=== PATIENT | female | born 2000 | race Caucasian/White ===

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

== ENCOUNTER → 2021-08-22 | Outpatient (CLI) | payer OTHER ==
[~2021-08-22] MED LIST changes: +IBUPROFEN600 MG PO; +PYRIDIUM200 M1 PO; +SEPTDS PO
== END | disposition home or self-care (01) ==
LOC: COVID19 16:19
PROVIDERS: ATTEND Internal Medicine
DX: Z20.822 Contact with and (suspected) exposure to COVID-19 (principal)

== ENCOUNTER 2021-11-19 08:11 | Emergency (ER) | payer OTHER ==
[~2021-11-19] VITALS: Ht 165.1 cm; Wt 90.7 kg
[2021-11-19] MEDS ORDERED: Motrin,Rufen800 MG PO (11:06)
== END 2021-11-19 11:07 | disposition home or self-care (01) ==
LOC: ED 08:11
DX: M77.9 Enthesopathy, unspecified (principal)

== ENCOUNTER 2023-02-13 16:10 | Emergency (ER) | payer OTHER ==
[~2023-02-13] VITALS: Ht 165.1 cm; Wt 79.8 kg
[2023-02-13] MEDS ORDERED: AVPAK AZITHROM250 M1 PO (18:12)
== END 2023-02-13 18:13 | disposition home or self-care (01) ==
LOC: ED 16:10
DX: J40 Bronchitis, not specified as acute or chronic (principal); Z79.2 Long term (current) use of antibiotics; Z79.899 Other long term (current) drug therapy

== ENCOUNTER 2023-06-20 06:51 | Emergency (ER) | payer OTHER ==
[~2023-06-20] VITALS: Ht 172.7 cm; Wt 80.7 kg
[~2023-06-20 06:51] MED LIST changes: +AVPAK AZITHROM250 M1 PO
[2023-06-20] MEDS ORDERED: TRI-LO-MILI TA1 EACH PO (06:59)
[2023-06-20 08:16] LABS: BASO # 0.1 10*3/uL (0.0-0.1); BASO % 0.6 % (0.0-1.0); EOS # 0.3 10*3/uL (0.0-0.4); HEMATOCRIT 39.8 % (37.0-47.0); LYMPH # 1.4 10*3/uL (1.3-4.4); LYMPH % 16.8 % (27.0-41.0); MEAN CELL VOLUME 94.3 fl (81.0-99.0); MEAN CORPUSCULAR HGB CONC 33.9 g/dl (33.0-37.0); MEAN PLATELET VOLUME 9.8 fl (9.6-12.3); MONO # 0.4 10*3/uL (0.1-1.0); MONO % 5.3 % (3.0-9.0); NEUT # 6.1 10*3/uL (2.3-7.9); NEUT % 73.1 % (47.0-73.0); PLATELET COUNT AUTOMATED 274 10*3/uL (130-400); RED BLOOD COUNT 4.22 10*6/uL (4.10-5.10); RED CELL DISTRI WIDTH 11.7 % (0-14.5); WHITE BLOOD COUNT 8.3 10*3/uL (4.8-10.8)
[2023-06-20 08:36] LABS: ALKALINE PHOSPHATASE 51 U/L (46-116); BUN 8 mg/dl (9-23); CHLORIDE 108 mmol/L (98-107); LIPASE 30 U/L (12-53); POTASSIUM 4.1 mmol/L (3.4-5.1); SGPT/ALT 14 U/L (5-49); TOTAL PROTEIN 7.1 gm/dL (6.0-8.0)
[2023-06-20 08:39] LABS: BETA-HCG, QUANT < 3.0 mIU/mL (3-10)
[2023-06-20] MEDS ORDERED: PEPCID20 MG PO (12:52)
[2023-06-20] MEDS ORDERED: MECLIZINE HCL25 M2 PO (12:58)
== END 2023-06-20 13:07 | disposition home or self-care (01) ==
LOC: ED 06:51
PROVIDERS: Emergency Medicine
DX: R10.12 Left upper quadrant pain (principal); M54.9 Dorsalgia, unspecified; M25.511 Pain in right shoulder; Z98.890 Other specified postprocedural states; Z87.891 Personal history of nicotine dependence

== ENCOUNTER 2023-08-24 15:30 | Emergency (ER) | payer SELFPAY ==
[~2023-08-24] VITALS: Ht 165.1 cm; Wt 81.6 kg
[~2023-08-24 15:30] MED LIST changes: +MECLIZINE HCL25 M2 PO; +TRI-LO-MILI TA1 EACH PO
[2023-08-24] MEDS ORDERED: METHOCARBAMOL500 M1 PO (16:12)
[2023-08-24] MEDS ORDERED: PREDNISONE50 MG PO (16:12)
[2023-08-24 16:49] LABS: BILIRUBIN Negative (Negative); BLOOD Negative (Negative); CLARITY Clear (Clear); COLOR Yellow (Yellow); GLUCOSE Negative (Negative); KETONE Negative (Negative); LEUKO ESTERASE Negative (Negative); NITRITE Negative (Negative); SPECIFIC GRAVITY 1.025 (1.001-1.030); UROBILINOGEN 0.2 E.U./dl (0.0-1.0)
[2023-08-24 16:55] LABS: MUCOUS 1+
[2023-08-24 16:56] LABS: BACTERIA 1+; RBC 0-2 rbc/hpf (0-2); WBC 0-2 wbc/hpf (0-5)
== END 2023-08-24 16:29 | disposition home or self-care (01) ==
LOC: ED 15:30
PROVIDERS: Nurse Practitioner Family
DX: M54.50 Low back pain, unspecified (principal); Z98.890 Other specified postprocedural states; Z88.8 Allergy status to other drugs, medicaments and biological substances

== ENCOUNTER 2024-03-15 08:59 | Emergency (ER) | payer SELFPAY ==
[~2024-03-15] VITALS: Ht 165.1 cm; Wt 86.2 kg
[~2024-03-15 08:59] MED LIST changes: +METHOCARBAMOL500 M1 PO; +PREDNISONE50 MG PO
[2024-03-15] MEDS ORDERED: SILVER SULFADIAZINE 25 GM TUBE T ONE (09:20)
[2024-03-15] MEDS ORDERED: Bacitracin Zinc 14 GM TUBE T ONE (09:20)
[2024-03-15] MEDS ORDERED: SILVADENE20 GM T (09:22)
[2024-03-15] MEDS ORDERED: ANTIBIOTIC28.4 GM T (09:22)
== END 2024-03-15 09:37 | disposition home or self-care (01) ==
LOC: ED 08:59
DX: L55.9 Sunburn, unspecified (principal); Z98.890 Other specified postprocedural states

== ENCOUNTER 2024-04-24 11:05 | Emergency (ER) | payer SELFPAY ==
[~2024-04-24] VITALS: Ht 165.1 cm; Wt 90.7 kg
[~2024-04-24 11:05] MED LIST changes: +ANTIBIOTIC28.4 GM T; +SILVADENE20 GM T
[2024-04-24] MEDS ORDERED: AMOX-CLAV 875-1 EACH PO (11:18)
[2024-04-24] MEDS ORDERED: Amoxicillin/Clavulanate Pota 875 MG TAB PO ONE (11:20)
[2024-04-24] MEDS ORDERED: Tdap Vaccine 0.5 ML SYR (Adult Vaccine) IM ONE (11:20)
== END 2024-04-24 11:46 | disposition home or self-care (01) ==
LOC: ED 11:05
DX: S61.431A Puncture wound without foreign body of right hand, initial encounter (principal); Z98.890 Other specified postprocedural states; W54.0XXA Bitten by dog, initial encounter; Y93.89 Activity, other specified; Y92.89 Other specified places as the place of occurrence of the external cause; Y99.8 Other external cause status